=== PATIENT | female | born 1980 | race Two or more races ===

== ENCOUNTER 2018-03-26 15:50 | Emergency (ER) | payer BC, MEDICAID ==
[2018-03-26] MEDS: IBUPROFEN 800 MG TAB PO (16:03)
== END 2018-03-26 16:39 | disposition home or self-care (01) ==
LOC: E/R 15:50
DX: M54.5 Low back pain (principal); M54.2 Cervicalgia; J45.909 Unspecified asthma, uncomplicated
CPT/HCPCS: 99283; Z7502